=== PATIENT | female | born 1975 | race Caucasian/White ===

== ENCOUNTER 2018-08-19 18:27 | Emergency (ER) | payer OTHER ==
[~2018-08-19] VITALS: Ht 182.9 cm; Wt 99.8 kg
[~2018-08-19 18:27] MED LIST: MELO7.5 PO; METO25 PO; POTCHL10ER PO
[2018-08-19] MEDS ORDERED: GABA600 PO (18:39)
== END 2018-08-19 19:53 | disposition home or self-care (01) ==
LOC: ER 18:27
DX: S61.211A Laceration without foreign body of left index finger without damage to nail, initial encounter (principal); W26.0XXA Contact with knife, initial encounter; Z79.899 Other long term (current) drug therapy
CPT/HCPCS: 12001; 90471; 90714; 99282-25

== ENCOUNTER 2020-03-26 11:00 | Day surgery (SDC) | payer OTHER ==
[~2020-03-26] VITALS: Ht 182.9 cm; Wt 92.8 kg
[~2020-03-26 11:00] MED LIST changes: +GABA600 PO
[2020-03-26] MEDS ORDERED: LINZESS145 MCG PO (11:45)
== END 2020-03-26 13:35 | disposition home or self-care (01) ==
LOC: ORSCSDS 11:00
PROVIDERS: Internal Medicine Gastroenterology
PROC: 0DB68ZX Excision of Stomach, Via Natural or Artificial Opening Endoscopic, Diagnostic (ICD-10-PCS; principal; 2020-03-26 13:00)
PROC: 0DB98ZX Excision of Duodenum, Via Natural or Artificial Opening Endoscopic, Diagnostic (ICD-10-PCS; principal; 2020-03-26 13:00)
DX: R10.13 Epigastric pain (principal); K29.70 Gastritis, unspecified, without bleeding; Z79.899 Other long term (current) drug therapy
CPT/HCPCS: 88305; 88342; J2704; J7120

== ENCOUNTER 2022-11-16 08:48 | Day surgery (SDC) | payer OTHER ==
[2022-11-16] VITALS (12 sets, daily range): BP systolic 117–142; BP diastolic 71–93
[~2022-11-16] VITALS: Ht 182.9 cm; Wt 95.5 kg
[~2022-11-16 08:48] MED LIST changes: +DEPO-PROVE150 MG/1 M IM; +Finacea50 GM TOP; +GABA300 PO; -GABA600 PO; +LINZESS145 MCG PO; +OXYC10ER PO; +PANT20 PO; +SERT50 PO
--- NOTE | 2022-11-16 09:30 | NUR ---
Ambulatory in Day Surgery Patient confirms NPO status and agrees with scheduled surgery. Pre-Op teaching done. Pt verbalizes understanding. History, Chart, Medications and Allergies reviewed before start of procedure.
--- NOTE | 2022-11-16 12:08 | NUR ---
11/16/22 1208 Alayna Odonnell BRUISE NOTED TO Cristine MCKENZIE. AWARE.
--- NOTE | 2022-11-16 14:10 | NUR ---
ARRIVAL TO SURGICAL UNIT PLEASANT & ALERT. ASSESSMENT CHARTED. DENIES N/V. WATER & CRACKERS GIVEN.
--- NOTE | 2022-11-16 19:38 | NUR ---
SHIFT SUMMARY PT HAS DONE WELL TODAY. STRUGGLED w/ PAIN MANAGEMENT SPINAL WORE OFF BUT WAS STILL ABLE TO GET UP TO BATHROOM & UP IN ROOM. EATING, DRINKING, & VOIDING.
[2022-11-17 00:46] VITALS: BP 123/75
[2022-11-17 04:43] LABS: BASOPHILS ABSOLUTE AUTO 0.02 K/mm3 (0.00-0.23); BASOPHILS PERCENT AUTO 0 % (0-2); EOSINOPHILS ABSOLUTE AUTO 0.03 K/mm3 (0.00-0.68); EOSINOPHILS PERCENT AUTO 0 % (0-6); Hematocrit 36.4 % (33.0-51.0); Hemoglobin 12.2 g/dL (11.5-16.0); IMMATURE GRAN ABSOLUTE AUTO 0.04 K/mm3 (0.00-0.10); IMMATURE GRAN PERCENT AUTO 0 % (0-1); LYMPHOCYTES ABSOLUTE AUTO 1.31 K/mm3 (0.84-5.20); LYMPHOCYTES PERCENT AUTO 12 % (21-46); MONOCYTES ABSOLUTE AUTO 0.72 K/mm3 (0.16-1.47); MONOCYTES PERCENT AUTO 6 % (4-13); Mean Corpuscular HGB 28.6 pg (26.0-34.0); Mean Corpuscular HGB Conc 33.5 g/dL (31.5-36.5); Mean Corpuscular Volume 85 fL (80-100); Mean Platelet Volume 10.2 fL (9.1-12.4); NEUTROPHILS ABSOLUTE AUTO 9.27 K/mm3 (1.96-9.15); NEUTROPHILS PERCENT AUTO 81 % (41-73); Platelet Count 193 K/mm3 (150-400); RDW Coefficient Variation 12.5 % (11.7-14.2); RDW Standard Deviation 38.7 fL (35.1-46.3); Red Blood Cell Count 4.27 M/mm3 (3.80-5.20); White Blood Cell Count 11.39 K/mm3 (4.00-11.30)
--- NOTE | 2022-11-17 05:09 | NUR ---
SHIFT SUMMARY POD 1 L TKA, AQUACEL C/D/I, POLAR PACK IN PLACE. PT UP TO BATHROOM SEVERAL TIMES T/O NIGHT W/ FWW, TOLERATING WELL. VSS, MEDICATED 1X FOR 6/10 PAIN W/ 10MG OXY. NO ACUTE CHANGES THIS SHIFT. CALL LIGHT W/IN REACH. PLANS FOR DISCHARGE TODAY TO HOME.
[2022-11-17 06:50] LABS: Bun/Creatinine Ratio 28.6 (12.0-20.0); Calcium, Blood 8.4 mg/dL (8.5-10.1); Creatinine, Blood 0.73 mg/dL (0.40-1.00)
[2022-11-17 07:08] VITALS: BP 120/81
[2022-11-17] MEDS ORDERED: ASPI81CH PO (08:57)
[2022-11-17] MEDS ORDERED: Percocet 5-3251 EACH PO (08:58)
--- NOTE | 2022-11-17 09:55 | NUR ---
DISCHARGE PT HAS CLEARED THERAPY. PAIN WELL CONTROLLED. EATING, DRINKING, & VOIDING WELL. SCRIPT GIVEN YESTERDAY TP SPOUSE & FILLED. DRSGS & POLAR PACK SENT w/ PT. ESCORTED OUT VIA W/C.
[2022-11-17 14:06] LABS: Potassium, Blood 3.8 mmol/L (3.5-5.5)
== END 2022-11-17 10:09 | disposition home or self-care (01) ==
LOC: ORSCMMR 08:48 → ORD 09:15 → ORSCMMR 10:00 → SURS 14:08 → ORSCMMR 11-17 10:09
PROVIDERS: Orthopaedic Surgery
PROC: 0SRD0JA Replacement of Left Knee Joint with Synthetic Substitute, Uncemented, Open Approach (ICD-10-PCS; principal; 2022-11-16 10:00)
DX: M17.12 Unilateral primary osteoarthritis, left knee (principal); F41.9 Anxiety disorder, unspecified; M79.7 Fibromyalgia; Z79.899 Other long term (current) drug therapy
CPT/HCPCS: 36415; 73560-LT; 80048; 85025; 97110; 97116; 97162; A9270; C1776; C9113; J0171; J0690; J0735; J1100; J1170; J1885; J2250; J2405; J2704; J2795; J3010; J7120

== ENCOUNTER 2023-06-21 08:38 | Day surgery (SDC) | payer OTHER ==
[2023-06-21] VITALS (16 sets, daily range): BP systolic 109–142; BP diastolic 68–81
[~2023-06-21] VITALS: Ht 182.9 cm; Wt 96.6 kg
[~2023-06-21 08:38] MED LIST changes: +ASPI81CH PO; +IBUP800 PO; +Percocet 5-3251 EACH PO
[2023-06-21] MEDS ORDERED: OxyCODONE HCL 10 MG TABCR PO SCH (09:10)
[2023-06-21] MEDS ORDERED: Bupivacaine 0.5% HCl 5 MG/ML 30MLVIAL ONE (09:10)
[2023-06-21] MEDS ORDERED: CeFAZolin Sodium 2,000 MG in NS 100 ML IV SCH ×4 (09:10→19:00)
[2023-06-21] MEDS ORDERED: Chlorhexidine Mouth Care 15 ML UDC MT SCH (09:10)
[2023-06-21] MEDS ORDERED: Lactated Ringer's 1,000 ML IV SCH ×2 (09:10→12:10)
[2023-06-21] MEDS ORDERED: Ropivacaine 0.5% HCl/Pf 123.125 MG,EPINEPHrine HCL 0.25 MG,Ketorolac Tromethamine 15 MG... INFIL SCH (09:10)
[2023-06-21] MEDS ORDERED: Acetaminophen 500 MG Tab PO SCH ×2 (09:10→16:00)
[2023-06-21] MEDS ORDERED: Tranexamic Acid 100 ML IV SCH (09:15)
[2023-06-21] MEDS ORDERED: Phenylephrine HCl 10mg/ml 1 ml Vial ONE ×2 (09:54)
--- NOTE | 2023-06-21 10:17 | NUR ---
Ambulatory in Day Surgery History, Chart, Medications and Allergies reviewed before start of procedure. Pre-Op teaching done. Pt verbalizes understanding.
[2023-06-21] MEDS ORDERED: ePHEDrine Sulfate 50 MG/ML 1ML Injection ONE (10:28)
[2023-06-21] MEDS ORDERED: Glycopyrrolate 0.2 MG/ML 5ML VIAL ONE (10:28)
[2023-06-21] MEDS ORDERED: Midazolam HCl 1MG / ML 2ML Vial ONE ×2 (11:36→12:08)
[2023-06-21] MEDS ORDERED: OxyCODONE HCL 5 MG TAB PO PRN ×2 (12:05→12:15)
[2023-06-21] MEDS ORDERED: Metoclopramide HCl 5MG / ML 2ML Vial IV PRN (12:05)
[2023-06-21] MEDS ORDERED: Ondansetron HCl 2 MG / ML 2ML Vial IV PRN (12:05)
[2023-06-21] MEDS ORDERED: DiphenhydrAMINE HCL 25 MG Cap PO PRN (12:05)
[2023-06-21] MEDS ORDERED: Magnesium Hydroxide Conc 10 ML UDC PO PRN (12:05)
[2023-06-21] MEDS ORDERED: Bisacodyl 10 MG Supp PR PRN (12:10)
[2023-06-21] MEDS ORDERED: HYDROmorphone HCl/Pf 1MG SYR IV PRN (12:10)
[2023-06-21] MEDS ORDERED: Promethazine HCl 25 MG Tab PO PRN (12:15)
[2023-06-21] MEDS ORDERED: Dexamethasone Sod Phos 10 MG/ML 1ML VIAL ONE (12:25)
[2023-06-21] MEDS ORDERED: Ondansetron HCl 2 MG / ML 2ML Vial ONE (12:25)
[2023-06-21] MEDS ORDERED: MEDROXYPROGESTERONE IM SCH (13:20)
[2023-06-21] MEDS ORDERED: Ketorolac Tromethamine 30mg Vial ONE (13:25)
[2023-06-21] MEDS ORDERED: Ketorolac Tromethamine 15mg Vial IV SCH (18:00)
--- NOTE | 2023-06-21 18:55 | NUR ---
SHIFT SUMMARY PT HAS DONE WELL POST OP. AFTER SPINAL WORE OFF, UP TO VOID & AMBULATE EASILY. PAIN WELL CONTROLLED ONCE MEDICATION STARTED WORKING. PLEASANT, COOPERATIVE, UPBEAT. SURG SITE WNL. DECIDED TO STAY OVERNIGHT AFTER AMBULATION TO GET TO WORK w/ THERAPY IN AM.
[2023-06-21] MEDS ORDERED: Misc. Topical TOP SCH (21:00)
[2023-06-21] MEDS ORDERED: Gabapentin 300 MG Cap PO SCH (21:00)
[2023-06-21] MEDS ORDERED: Docusate Sodium 100 MG Cap PO SCH (21:00)
[2023-06-22 04:02] VITALS: BP 128/82
--- NOTE | 2023-06-22 04:14 | NUR ---
SHIFT SUMMARY POD 1 R TKA PT ABLE TO SLEEP FOR MOST OF THE NIGHT. PAIN MANAGED PER EMAR. AQUACEL AND MIGDALIA TO R KNEE ARE C/D/I. PT AMBULATING TO THE BR, VOIDING. POLAR PAC ON ALL NIGHT. PLAN FOR PHYSICAL THERAPY IN THE MORNING THEN D/C HOME. NO OTHER NEEDS AT THIS TIME. CALL LIGHT WITHIN REACH.
[2023-06-22 05:35] LABS: BASOPHILS PERCENT AUTO 0 % (0-2); EOSINOPHILS PERCENT AUTO 0 % (0-6); Hematocrit 34.4 % (33.0-51.0); Hemoglobin 11.7 g/dL (11.5-16.0); IMMATURE GRAN ABSOLUTE AUTO 0.03 K/mm3 (0.00-0.10); IMMATURE GRAN PERCENT AUTO 0 % (0-1); LYMPHOCYTES ABSOLUTE AUTO 0.81 K/mm3 (0.84-5.20); LYMPHOCYTES PERCENT AUTO 9 % (21-46); MONOCYTES ABSOLUTE AUTO 0.54 K/mm3 (0.16-1.47); MONOCYTES PERCENT AUTO 6 % (4-13); Mean Corpuscular HGB 28.5 pg (26.0-34.0); Mean Corpuscular Volume 84 fL (80-100); Mean Platelet Volume 10.1 fL (9.1-12.4); NEUTROPHILS ABSOLUTE AUTO 7.46 K/mm3 (1.96-9.15); NEUTROPHILS PERCENT AUTO 84 % (41-73); Platelet Count 179 K/mm3 (150-400); RDW Coefficient Variation 12.4 % (11.7-14.2); RDW Standard Deviation 37.8 fL (35.1-46.3); Red Blood Cell Count 4.11 M/mm3 (3.80-5.20); White Blood Cell Count 8.84 K/mm3 (4.00-11.30)
[2023-06-22] MEDS ORDERED: Pantoprazole Sodium 20 MG Tab PO SCH (06:00)
[2023-06-22 06:15] LABS: Bun/Creatinine Ratio 23.6 (12.0-20.0); Calcium, Blood 8.5 mg/dL (8.5-10.1); Creatinine, Blood 0.59 mg/dL (0.40-1.00); Potassium, Blood 3.5 mmol/L (3.5-5.5)
[2023-06-22 07:20] VITALS: BP 114/76
[2023-06-22] MEDS ORDERED: ASPI81CH PO (08:50)
[2023-06-22] MEDS ORDERED: Sertraline HCl 50 MG Tab PO SCH (09:00)
[2023-06-22] MEDS ORDERED: Aspirin 81 MG Chew PO SCH (09:00)
--- NOTE | 2023-06-22 09:07 | NUR ---
DISCHARGE EDUCATION PT HAS CLEARED THERAPY. PAIN WELL CONTROLLED. EATING, DRINKING, & VOIDING WELL. DRSGS GIVEN. WAITING FOR TO ARRIVE.
--- NOTE | 2023-06-22 09:39 | NUR ---
ESCORTED OUT VIA . POLAR PACK & BELONGINGS SENT.
== END 2023-06-22 09:47 | disposition home or self-care (01) ==
LOC: ORSCMMR 08:38 → ORD 10:00 → ORSCMMR 10:00 → SURS 14:47 → ORSCMMR 06-22 09:47
PROVIDERS: Orthopaedic Surgery
PROC: 0SRC0JA Replacement of Right Knee Joint with Synthetic Substitute, Uncemented, Open Approach (ICD-10-PCS; principal; 2023-06-21 10:00)
DX: M17.11 Unilateral primary osteoarthritis, right knee (principal); Z96.652 Presence of left artificial knee joint; K21.9 Gastro-esophageal reflux disease without esophagitis; J04.0 Acute laryngitis; F41.9 Anxiety disorder, unspecified; Z79.899 Other long term (current) drug therapy
CPT/HCPCS: 36415; 73560-RT; 80048; 85025; 97116; 97161; 97530; A9270; C1713; C1776; C9113; J0171; J0690; J0735; J1100; J1170; J1885; J2250; J2371; J2405; J2795; J7120

== ENCOUNTER 2025-01-04 10:55 | Day surgery (SDC) | payer OTHER ==
[~2025-01-04] VITALS: Ht 182.9 cm; Wt 96.3 kg
[2025-01-04] VITALS (17 sets, daily range): BP systolic 115–154; BP diastolic 76–95
[~2025-01-04 10:55] MED LIST changes: +CELE200 PO
[2025-01-04] MEDS ORDERED: Midazolam HCl 1MG / ML 2ML Vial ONE (11:34)
[2025-01-04] MEDS ORDERED: Ropivacaine 0.5% HCL/PF 5 MG/ML 30ML Vial ONE ×2 (11:54→12:18)
[2025-01-04] MEDS ORDERED: Metoclopramide HCl 5MG / ML 2ML Vial IV PRN (11:55)
[2025-01-04] MEDS ORDERED: Albuterol 2.5 MG/3 ML VIAL INH PRN (11:55)
[2025-01-04] MEDS ORDERED: Ondansetron HCl 2 MG / ML 2ML Vial IV PRN (11:55)
[2025-01-04] MEDS ORDERED: FentaNYL Citrate 50 MCG/ML 2 ML Injection IV PRN ×2 (11:55→12:00)
[2025-01-04] MEDS ORDERED: Midazolam HCl 1MG / ML 2ML Vial IV PRN (11:55)
[2025-01-04] MEDS ORDERED: Prochlorperazine Edisylate 10 mg Vial IV PRN (11:55)
[2025-01-04] MEDS ORDERED: HYDROmorphone HCl/Pf 1MG SYR IV PRN (12:00)
[2025-01-04] MEDS ORDERED: CeFAZolin Sodium 2,000 MG in NS 100 ML IV SCH (12:25)
--- NOTE | 2025-01-04 13:13 | NUR ---
Ambulatory in Day Surgery. History, Chart, Medications and Allergies reviewed before start of procedure. Patient confirms NPO status and agrees with scheduled surgery. Surgical site prepped with 2% Chlorhexidine cloth wipe. Lungs clear T/O to Auscultation. at bedside. Discussed pain medication with Dr. Love who states prescription was sent electronically. Glasses and phone placed in labeled bag and taken to PACU. Patient reports completing Chlorhexadine shower X2 prior to admission to hospital.
--- NOTE | 2025-01-04 13:15 | NUR ---
TIME OUT PERFORMED WITH ASSISTANT CREDIT MANAGER NOBLE AT 12:43 FOR AXILLARY BLOCK PROCEDURE. PROCEDURE STARTED AT 12:50, ENDED AT 13:00. PT TOLERATED THE PROCEDURE WELL, O2 SATS MONITORED THROUGHOUT PROCEDURE, LOWEST WAS 97%.
[2025-01-04] MEDS ORDERED: FentaNYL Citrate 50 MCG/ML 2 ML Injection ONE ×3 (14:09→15:57)
[2025-01-04] MEDS ORDERED: HYDROmorphone HCl/Pf 1MG SYR ONE ×2 (15:47→16:04)
--- NOTE | 2025-01-04 17:23 | NUR ---
FRIEND AT BEDSIDE DURING STEP DOWN RECOVERY. PT DENIED WANTING ANYTHING TO EAT OR DRINK DURING RECOVERY. ALL BELONGINGS RETURNED TO PT INCLUDING HER HOUSE DONOHUE. Discharge instructions reviewed with patient. Patient verbalizes understanding. Copy given to patient to take home. PT REPORTS PAIN LEVEL OF 6/7 TOLERABLE AND IS WANTING TO GO HOME. SEE EMAR FOR ORAL PAIN MEDS GIVEN. Discharged via wheelchair to private car for ride home WITH FRIEND.
[2025-01-04] MEDS ORDERED: Ketorolac Tromethamine 30mg Vial IV ONE (19:26)
[2025-01-04] MEDS ORDERED: Dexamethasone Sod Phos 10 MG/ML 1ML VIAL IV ONE (19:26)
[2025-01-04] MEDS ORDERED: Ondansetron HCl 2 MG / ML 2ML Vial IV ONE (19:26)
[2025-01-04] MEDS ORDERED: FentaNYL Citrate 50 MCG/ML 2 ML Injection IV ONE (19:26)
== END 2025-01-04 17:20 | disposition home or self-care (01) ==
LOC: ORSCMMR 10:55 → ORD 12:30 → ORSCMMR 12:30
PROVIDERS: Orthopaedic Surgery
PROC: 0PSJ04Z Reposition Left Radius with Internal Fixation Device, Open Approach (ICD-10-PCS; principal; 2025-01-04 12:30)
DX: S52.572A Other intraarticular fracture of lower end of left radius, initial encounter for closed fracture (principal); W18.30XA Fall on same level, unspecified, initial encounter; F41.9 Anxiety disorder, unspecified; K21.9 Gastro-esophageal reflux disease without esophagitis; Z79.899 Other long term (current) drug therapy
CPT/HCPCS: A9270; C1713; C1889; J0690; J1100; J1171; J1885; J2250; J2405; J2704; J2795; J3010; J7120